=== PATIENT | female | born 1975 | race Caucasian/White ===

== ENCOUNTER 2019-12-09 13:15 | Day surgery (SDC) | payer OTHER ==
[~2019-12-09] VITALS: Ht 162.6 cm; Wt 84.8 kg
[~2019-12-09 13:15] MED LIST: CHOL10003 PO; NEBI20TA2 PO; NORE-213 PO
[2019-12-09] MEDS ORDERED: EPINEPHRINE 1 MG/ML, 1ML ONE (13:41)
[2019-12-09] MEDS ORDERED: BUPIVACAINE/PF 0.25% ONE ×2 (13:41→13:45)
[2019-12-09 13:42] VITALS: BP 154/84
[2019-12-09] MEDS ORDERED: CHLORHEXIDINE 15 ML UDC MM STA (13:46)
[2019-12-09] MEDS ORDERED: LACTATED RINGERS 1,000 ML IV ONE (13:48)
[2019-12-09 14:07] LABS: HCG UR SG 1.021 (1.003-1.030)
[2019-12-09] MEDS ORDERED: MIDAZOLAM 1 MG/ML, 2ML ONE (15:01)
[2019-12-09] MEDS ORDERED: FENTANYL PF 250 MCG/5ML ONE (15:01)
[2019-12-09] MEDS ORDERED: ALBUTEROL SULFATE 2.5 MG/3 ML NPPB PRN (15:30)
[2019-12-09] MEDS ORDERED: ACETAMINOPHEN 325 MG TABLET PO PRN (15:30)
[2019-12-09] MEDS ORDERED: hydrALAzine 20 MG/ML, 1ML IV PRN (15:30)
[2019-12-09] MEDS ORDERED: HYDROmorphone 2 MG/ML, 1ML IVPush PRN (15:30)
[2019-12-09] MEDS ORDERED: LABETALOL 5MG/ML, 20ML IV PRN (15:30)
[2019-12-09] MEDS ORDERED: DIAZEPAM 5 MG/ML, 2ML IVPush PRN (15:30)
[2019-12-09] MEDS ORDERED: OXYcodone 5 MG/5 ML ORAL.SOL UDC PO PRN (15:30)
[2019-12-09] MEDS ORDERED: MEPERIDINE/PF 25MG/0.5ML IVPush PRN (15:30)
[2019-12-09] MEDS ORDERED: PROMETHAZINE 25 MG/ML, 1ML IV PRN (15:30)
[2019-12-09] MEDS ORDERED: CEFAZOLIN 1,000 MG ONE (15:37)
[2019-12-09] MEDS ORDERED: PROPOFOL 10 MG/ML, 20ML ONE (15:37)
[2019-12-09] MEDS ORDERED: SUCCINYLCHOLINE 20 MG/ML, 10ML ONE (15:37)
[2019-12-09] MEDS ORDERED: GLYCOPYRROLATE 0.2MG/1ML, 5ML ONE (15:37)
[2019-12-09] MEDS ORDERED: ROCURONIUM 10MG/ML,5ML ONE (15:37)
[2019-12-09] MEDS ORDERED: NEOSTIGMINE 1 MG/ML, 10ML ONE (15:37)
[2019-12-09] MEDS ORDERED: ONDANSETRON 2MG/ML, 2ML ONE (15:37)
[2019-12-09] MEDS ORDERED: DEXAMETHASONE 4 MG/ML, 1ML ONE (15:37)
[2019-12-09] MEDS ORDERED: OXYcodone 5 MG/5 ML ORAL.SOL UDC ONE ×2 (15:57→16:16)
[2019-12-09] MEDS ORDERED: FENTANYL PF 100 MCG/2ML ONE ×2 (15:57→16:22)
[2019-12-09] MEDS ORDERED: DIAZEPAM 5 MG/ML, 2ML ONE (15:57)
[2019-12-09] MEDS: FENTANYL PF 100 MCG/2ML IV PRN ×3 (15:59→16:40)
[2019-12-09] MEDS ORDERED: ACETAMINOPHEN 650 MG/20.3 ML UDC ONE (16:16)
[2019-12-09] MEDS ORDERED: ACETAMINOPHEN 325 MG TABLET ONE (16:16)
[2019-12-09] MEDS ORDERED: KETOROLAC 30 MG/1 ML ONE (16:48)
[2019-12-09] MEDS ORDERED: KETOROLAC 30 MG/1 ML IVPush SCH (17:00)
== END 2019-12-09 18:05 | disposition home or self-care (01) ==
LOC: OR 13:15
PROVIDERS: ATTEND Obstetrics & Gynecology
DX: R10.2 Pelvic and perineal pain (principal); Z11.59 Encounter for screening for other viral diseases; I10 Essential (primary) hypertension; E66.9 Obesity, unspecified; Z90.49 Acquired absence of other specified parts of digestive tract; Z88.1 Allergy status to other antibiotic agents; Z98.890 Other specified postprocedural states; Z79.899 Other long term (current) drug therapy; Z68.32 Body mass index [BMI] 32.0-32.9, adult; Z83.3 Family history of diabetes mellitus; Z82.49 Family history of ischemic heart disease and other diseases of the circulatory system
CPT/HCPCS: 49320; 81025; 87635; J0171; J0690; J1100; J1885; J2250; J2405; J2704; J2710; J3010; J3360; J3490; J7120; J0330

== ENCOUNTER 2020-03-25 09:31 | Day surgery (SDC) | payer OTHER ==
[~2020-03-25] VITALS: Ht 162.6 cm; Wt 84.3 kg
[~2020-03-25 09:31] MED LIST changes: +EPHEDRINE 50 MG/ML, 1ML IVPush PRN; +FENTANYL PF 100 MCG/2ML IV PRN; +HYDROmorphone 1 MG/ML, 1ML INJ IVPush PRN; +LABETALOL 5MG/ML, 20ML IV PRN; +MEPERIDINE/PF 25MG/0.5ML IVPush PRN; +ONDANSETRON 2MG/ML, 2ML IVPush PRN; +OXYcodone 5 MG/5 ML ORAL.SOL UDC PO PRN; +PLEASE ENTER HEIGHT AND WEIGHT MC SCH; +PROMETHAZINE 25 MG/ML, 1ML IVPush PRN; +hydrALAzine 20 MG/ML, 1ML IV PRN
[2020-03-25] MEDS ORDERED: MIDAZOLAM 1 MG/ML, 2ML ONE (10:10)
[2020-03-25] MEDS ORDERED: FENTANYL PF 250 MCG/5ML ONE (10:11)
[2020-03-25 10:14] VITALS: BP 151/89
[2020-03-25] MEDS ORDERED: CHLORHEXIDINE 15 ML UDC ONE (10:28)
[2020-03-25] MEDS ORDERED: LACTATED RINGERS 1,000 ML IV SCH (10:30)
[2020-03-25] MEDS ORDERED: ACETAMINOPHEN 500 MG TABLET PO ONE (10:30)
[2020-03-25] MEDS ORDERED: CHLORHEXIDINE 15 ML UDC MM ONE (10:30)
[2020-03-25 10:36] LABS: HCG UR SG 1.015 (1.003-1.030)
[2020-03-25 10:52] LABS: CREATININE 0.85 mg/dL (0.55-1.02)
[2020-03-25 10:55] LABS: BASOPHILS % (AUTO) 1 % (0-1); EOSINOPHILS % (AUTO) 1 % (1-7); LYMPHOCYTES % (AUTO) 32 % (22-44); MEAN PLATELET VOLUME 11.1 fL (7.4-10.4); MONOCYTES % (AUTO) 8 % (2-9); NEUTROPHILS % (AUTO) 58 % (42-75); PLATELET COUNT 225 x10^3/uL (130-400); RED BLOOD COUNT 5.56 x10^6/uL (3.82-5.3); RED CELL DISTRIBUTION WIDTH 13.2 % (9.6-15.2)
[2020-03-25 11:02] LABS: ANION GAP 5 mmol/L (5-15); CHLORIDE 114 mmol/L (98-107)
[2020-03-25] MEDS ORDERED: BUPIVACAINE/PF 0.25% ONE (11:06)
[2020-03-25] MEDS ORDERED: EPINEPHRINE 1 MG/ML, 1ML ONE (11:06)
[2020-03-25] MEDS ORDERED: FLUORESCEIN SODIUM 500 MG/5 ML ONE (11:06)
[2020-03-25 11:12] LABS: MD NO
[2020-03-25] MEDS ORDERED: PROPOFOL 10 MG/ML, 20ML ONE (11:29)
[2020-03-25] MEDS ORDERED: SUCCINYLCHOLINE 20 MG/ML, 10ML ONE (11:29)
[2020-03-25] MEDS ORDERED: ONDANSETRON 2MG/ML, 2ML ONE (11:29)
[2020-03-25] MEDS ORDERED: ROCURONIUM 10MG/ML,5ML ONE (11:29)
[2020-03-25] MEDS ORDERED: DEXAMETHASONE 4 MG/ML, 1ML ONE (11:29)
[2020-03-25] MEDS ORDERED: CEFAZOLIN 1,000 MG ONE (11:29)
[2020-03-25] MEDS ORDERED: SUGAMMADEX 200 MG/2 ML IVPush ONE (11:44)
[2020-03-25] MEDS ORDERED: KETOROLAC 30 MG/1 ML ONE (11:44)
== END 2020-03-25 16:20 | disposition home or self-care (01) ==
LOC: OUT 09:31
PROVIDERS: ATTEND Obstetrics & Gynecology
DX: R10.2 Pelvic and perineal pain (principal); I10 Essential (primary) hypertension; Z88.1 Allergy status to other antibiotic agents; Z20.828 Contact with and (suspected) exposure to other viral communicable diseases; Z90.49 Acquired absence of other specified parts of digestive tract; Z98.890 Other specified postprocedural states; Z79.899 Other long term (current) drug therapy; Z83.3 Family history of diabetes mellitus; Z82.49 Family history of ischemic heart disease and other diseases of the circulatory system
CPT/HCPCS: 36415; 58552; 80048; 81025; 85025; 87635; 88307; 93005; J0171; J0330; J0690; J1100; J1885; J2250; J2405; J2704; J3010; J7120